=== PATIENT | female | born 1980 | race African-American/Black ===

== ENCOUNTER 2018-04-30 07:31 | Emergency (ER) | payer OTHER ==
[~2018-04-30] VITALS: Ht 160 cm; Wt 57.0 kg
[~2018-04-30 07:31] MED LIST: AMOXICILLIN500 MG PO; CLARITIN10 M1 PO; FLEXERIL PO; NAPROSYN500 MG PO
[2018-04-30] MEDS ORDERED: AMOXICILLIN500 M2 PO (08:04)
[2018-04-30] MEDS ORDERED: CORTISPORIN OTI10 M2 AS (08:04)
[2018-04-30] MEDS ORDERED: TORADOL PO (08:04)
[2018-04-30 08:11] VITALS: BP 128/75
== END 2018-04-30 08:25 | disposition home or self-care (01) ==
LOC: ED 07:31
DX: H66.92 Otitis media, unspecified, left ear (principal); H60.92 Unspecified otitis externa, left ear; H61.22 Impacted cerumen, left ear